=== PATIENT | female | born 1935 | race Caucasian/White ===

== ENCOUNTER → 2018-10-01 | Outpatient (CLI) | payer MEDICARE ==
--- NOTE | 2018-10-01 17:39 | KCIC ---
CT UPPR EXTREMTY WO CONTRST LT Indication: Osteoarthritis. Chronic pain. Preoperative exam. Exposure: One or more of the following individualized dose reduction techniques were utilized for this examination: 1. Automated exposure control 2. Adjustment of the mA and/or kV according to patient size 3. Use of iterative reconstruction technique. Comparison: None are available. Contrast: None Severe primary osteoarthritis of the glenohumeral joint. Complete loss of the joint space. Severe flattening and volume loss of the glenoid. Very large inferior osteophyte arising from the humeral head inferomedially. Subchondral cysts. Milder degenerative changes at the acromioclavicular joint. No evidence of an acute fracture or aggressive bone destruction. The partially visualized left lung demonstrates no focal consolidation. There is a small ossicle just above the humeral head, may represent a loose body within the joint. IMPRESSION: Severe glenohumeral joint osteoarthritis with severe bone volume loss at the glenoid. Electronically signed by: David Perez MD (10/01/2018 5:36 PM) [id number]
--- NOTE | 2018-10-01 17:43 | KCIC ---
CT UPPR EXTREMTY WO CONTRST RT Indication: Osteoarthritis. Chronic pain. Preoperative exam. Exposure: One or more of the following individualized dose reduction techniques were utilized for this examination: 1. Automated exposure control 2. Adjustment of the mA and/or kV according to patient size 3. Use of iterative reconstruction technique. Comparison: None are available. Contrast: None Severe primary osteoarthritis at the glenohumeral joint with complete loss of the joint space. Volume loss and flattening of the glenoid as well as the humeral head. Large inferior osteophyte arises from the inferomedial humeral head. Several additional osseous bodies are identified within the axillary recess and posterior recess, presumably loose bodies. There is also a well-corticated ossicle anterior to the coracoid process, compatible with loose body in the subscapularis recess. Degenerative changes at the acromioclavicular joint. Mild deformity of an inferior visualized right rib, likely due to an old fracture. The partially visualized right lung demonstrates some nodularity and interstitial opacity in the posterior right upper lobe. Nodular component measures about 7 mm. There is some interstitial opacities in the anterior right lung as well. IMPRESSION: 1. Severe primary osteoarthritis of the glenohumeral joint, with bony volume loss and multiple loose bodies. 2. Nodular opacity in the right upper lobe measures about 7 mm. As per Fleischner Society guidelines, recommend follow-up CT chest in 6-12 months. Electronically signed by: David Perez MD (10/01/2018 5:39 PM) [id number]
== END | disposition home or self-care (01) ==
LOC: KCIC CT 10:21
PROVIDERS: ATTEND Orthopaedic Surgery
DX: M19.011 Primary osteoarthritis, right shoulder (principal); M19.012 Primary osteoarthritis, left shoulder; M85.612 Other cyst of bone, left shoulder; M25.712 Osteophyte, left shoulder; M25.711 Osteophyte, right shoulder; G89.29 Other chronic pain; R91.8 Other nonspecific abnormal finding of lung field
CPT/HCPCS: 73200